=== PATIENT | male | born 1980 | race Native Hawaiian/Other Pacific Islander ===

== ENCOUNTER → 2017-06-23 | Outpatient (CLI) | payer SELFPAY ==
[2017-06-27 14:43] LABS: APPEARANCE Normal; DOUBLE FORM 0.5 %; HEAD SHAPE ABNORMAL 24.5 %; MIDPIECE ABNORMAL 6.5 %; MOTILE/mL 3.7 x10(6) (>=6.0); MOTILITY 12 % (>=40); SEMEN PH 7.5 (>=7.2); SEMEN VOLUME 3.5 mL (>=1.5); SPERM/ML 31.1 x10(6) (>=15.0); TAIL ABNORMAL 57.5 %
== END ==
LOC: CLAB 09:01
PROVIDERS: ATTEND Obstetrics & Gynecology
DX: Z00.8 Encounter for other general examination (principal)
CPT/HCPCS: 89322